=== PATIENT | male | born 1965 | race Hispanic/Latino ===

== ENCOUNTER 2024-09-01 16:58 | Inpatient (IN) | payer OTHER ==
[~2024-09-01] VITALS: Ht 167.6 cm; Wt 104.3 kg
[2024-09-01 17:50] LABS: BASOPHILS % 0.2 % (0.0-1.0); EOSINOPHILS % 0.2 % (0.0-6.0); HEMATOCRIT 36.3 % (38.2-49.6); HEMOGLOBIN 12.2 g/dL (14.0-18.0); LYMPHOCYTES # (AUTO) 0.7 (1.0-3.2); LYMPHOCYTES % 11.4 % (18.0-39.1); MEAN CORPUSCULAR HEMOGLOBIN 28.8 pg (28-32); MEAN CORPUSCULAR HGB CONC 33.6 g/dL (31-35); MEAN CORPUSCULAR VOLUME 85.6 fL (81-99); MONOCYTES # (AUTO) 0.4 (0.2-0.8); MONOCYTES % 5.5 % (4.4-11.3); NEUTROPHILS # (AUTO) 5.2 (2.1-6.9); NEUTROPHILS % 81.8 % (38.7-80.0); PLATELET COUNT 152 x10e3/uL (140-360); RED BLOOD COUNT 4.24 x10e6/uL (4.3-5.7); RED CELL DISTRIBUTION WIDTH 12.8 % (11.7-14.4); WHITE BLOOD COUNT 6.34 x10e3/uL (4.8-10.8)
[2024-09-01 17:53] LABS: BILIRUBIN,URINE SMALL (NEGATIVE); CLARITY,URINE SL CLOUDY (CLEAR); COLOR,URINE AMBER (YELLOW); GLUCOSE, URINE NEGATIVE (NEGATIVE); KETONES,URINE NEGATIVE (NEGATIVE); LEUKOCYTE ESTERASE ,URINE NEGATIVE (NEGATIVE); NITRITE,URINE NEGATIVE (NEGATIVE); PH,URINE 6 (5 - 7); PROTEIN,URINE DIPSTICK 2+ (NEGATIVE); URINE UROBILINOGEN 1 mg/dL (0.2 - 1)
[2024-09-01] MEDS: IBUPROFEN 600 MG TAB PO STA (17:57)
[2024-09-01] MEDS: SODIUM CHLORIDE 0.9% 1000ML 1,000 ML IV STA ×2 (17:57)
[2024-09-01] MEDS: ONDANSETRON HCL INJ 2MG/ML 2ML 2 MG/ML VIAL IV STA (17:57)
[2024-09-01] MEDS: ACETAMINOPHEN 325 MG TAB PO ONE (17:58)
[2024-09-01 18:00] LABS: INR 1.22; PROTHROMBIN TIME 16.1 seconds (11.9-14.5)
[2024-09-01 18:01] LABS: PARTIAL THROMBOPLASTIN TIME 41.3 seconds (23.8-35.5)
[2024-09-01 18:03] LABS: AMORPHOUS SEDIMENT,URINE MODERATE (FEW); BACTERIA,URINE MODERATE /HPF; RBC,URINE 0-5 /HPF (0-5); WBC,URINE (MAN) 0-5 /HPF (0-5)
[2024-09-01 18:08] LABS: ALBUMIN 3.1 g/dL (3.5-5.0); ANION GAP 18.3 mmol/L (8-16); BILIRUBIN,TOTAL 0.7 mg/dL (0.2-1.2); CALCIUM 8.2 mg/dL (8.4-10.2); CORONAVIRUS COVID-19 AG NEGATIVE (NEGATIVE); CREATININE, SERUM 1.67 mg/dL (0.72-1.25); INFLUENZA A AG NEGATIVE (NEGATIVE); INFLUENZA B AG NEGATIVE (NEGATIVE); MAGNESIUM 1.9 MG/DL (1.3-2.1); STREPTOCOCCUS GRP A ANTIGEN NEGATIVE (NEGATIVE); TOTAL PROTEIN 6.3 g/dL (6.5-8.1)
[2024-09-01 18:09] LABS: POTASSIUM 3.3 mmol/L (3.5-5.1)
[2024-09-01 18:14] LABS: TROPONIN I 0.038 ng/mL (0-0.300)
[2024-09-01 18:15] LABS: B-TYPE NATRIURETIC PEPTIDE2 80.7 pg/mL (0-100)
[2024-09-01] MEDS ORDERED: IOPAMIDOL 370 MG/ML 100 ML INFUS..BTL INJ ONE (18:33)
[2024-09-01] MEDS ORDERED: Morphine 4mg INJECTION 4 MG/ML INJ IV PRN (18:45)
[2024-09-01] MEDS ORDERED: ONDANSETRON HCL INJ 2MG/ML 2ML 2 MG/ML VIAL IV PRN (18:45)
[2024-09-01 19:45] VITALS: TEMP 99
[2024-09-01 19:50] VITALS: PULSE 88; RESP 18; O2SAT 99
[2024-09-01] MEDS: SODIUM CHLORIDE 0.9% 1000ML 1,000 ML IV SCH (20:00)
[2024-09-01 22:00] VITALS: BP 108/65; PULSE 92; RESP 18; O2SAT 99
[2024-09-01 22:15] VITALS: PULSE 88; RESP 16
[2024-09-02] VITALS (10 sets, daily range): BP systolic 109–123; BP diastolic 64–83; PULSE 73–126; RESP 18–20; TEMP 97.9–101.9; O2SAT 94–100
[2024-09-02] MEDS ORDERED: ATORVASTATIN CA20 MG PO (02:36)
[2024-09-02 06:09] LABS: BASOPHILS % 0.2 % (0.0-1.0); EOSINOPHILS % 0.2 % (0.0-6.0); HEMATOCRIT 35.1 % (38.2-49.6); HEMOGLOBIN 11.6 g/dL (14.0-18.0); LYMPHOCYTES # (AUTO) 0.5 (1.0-3.2); MEAN CORPUSCULAR HEMOGLOBIN 29.1 pg (28-32); MONOCYTES # (AUTO) 0.3 (0.2-0.8); MONOCYTES % 5.8 % (4.4-11.3); NEUTROPHILS # (AUTO) 3.9 (2.1-6.9); NEUTROPHILS % 82.9 % (38.7-80.0); PLATELET COUNT 114 x10e3/uL (140-360); RED BLOOD COUNT 3.99 x10e6/uL (4.3-5.7); RED CELL DISTRIBUTION WIDTH 13.1 % (11.7-14.4); WHITE BLOOD COUNT 4.69 x10e3/uL (4.8-10.8)
[2024-09-02 06:30] LABS: ALBUMIN 2.5 g/dL (3.5-5.0); ANION GAP 14.4 mmol/L (8-16); BILIRUBIN,TOTAL 0.6 mg/dL (0.2-1.2); CALCIUM 7.4 mg/dL (8.4-10.2); CREATININE, SERUM 1.53 mg/dL (0.72-1.25); TOTAL PROTEIN 5.1 g/dL (6.5-8.1)
[2024-09-02 06:31] LABS: POTASSIUM 3.4 mmol/L (3.5-5.1)
[2024-09-02 06:37] LABS: TROPONIN I 0.036 ng/mL (0-0.300)
[2024-09-02] MEDS: ACETAMINOPHEN 325 MG TAB PO PRN (09:34)
[2024-09-02] MEDS ORDERED: CLONIDINE HCL 0.1 MG TAB PO PRN (11:30)
[2024-09-02] MEDS ORDERED: ACETAMINOPHEN 325 MG TAB PO PRN (11:30)
[2024-09-02] MEDS: LORATADINE/PSEUDOEPHEDRINE 24 HR SR TAB PO SCH (14:28)
[2024-09-02] MEDS: DOCUSATE SODIUM 100 MG CAP PO SCH (14:28)
[2024-09-02 16:40] LABS: TROPONIN I 0.029 ng/mL (0-0.300)
[2024-09-02 16:46] LABS: HIV 1&2 AB SCREEN NON-REACTIVE (NONREACTIVE); HIV- 1 P24 AG SCREEN NON-REACTIVE (NONREACTIVE)
[2024-09-02] MEDS: POTASSIUM BICARBONATE/CIT AC 20 MEQ TABLET.EFF PO ONE (21:00)
[2024-09-02] MEDS: IBUPROFEN 600 MG TAB PO PRN (21:00)
[2024-09-02] MEDS: ATORVASTATIN 20 MG TAB PO SCH (21:00)
[2024-09-03] VITALS (7 sets, daily range): BP systolic 107–156; BP diastolic 72–92; PULSE 93–132; RESP 18–20; TEMP 97.4–102.3; O2SAT 97–100
[2024-09-03 05:52] LABS: BASOPHILS % 0.3 % (0.0-1.0); HEMOGLOBIN 10.1 g/dL (14.0-18.0); LYMPHOCYTES # (AUTO) 0.6 (1.0-3.2); LYMPHOCYTES % 14.9 % (18.0-39.1); MEAN CORPUSCULAR HEMOGLOBIN 28.8 pg (28-32); MEAN CORPUSCULAR HGB CONC 32.6 g/dL (31-35); MEAN CORPUSCULAR VOLUME 88.3 fL (81-99); MONOCYTES # (AUTO) 0.3 (0.2-0.8); MONOCYTES % 7.1 % (4.4-11.3); NEUTROPHILS % 75.4 % (38.7-80.0); PLATELET COUNT 148 x10e3/uL (140-360); RED BLOOD COUNT 3.51 x10e6/uL (4.3-5.7); RED CELL DISTRIBUTION WIDTH 13.5 % (11.7-14.4); WHITE BLOOD COUNT 3.96 x10e3/uL (4.8-10.8)
[2024-09-03 06:28] LABS: ALBUMIN 2.4 g/dL (3.5-5.0); ANION GAP 12.6 mmol/L (8-16); BILIRUBIN,TOTAL 0.5 mg/dL (0.2-1.2); CALCIUM 7.4 mg/dL (8.4-10.2); CREATININE, SERUM 1.33 mg/dL (0.72-1.25); POTASSIUM 3.6 mmol/L (3.5-5.1); TOTAL PROTEIN 4.8 g/dL (6.5-8.1)
[2024-09-03 10:45] LABS: BAND NEUTROPHILS % (MANUAL) 2 %; EOSINOPHILS % (MANUAL) 1 % (0-7); LYMPHOCYTES % (MANUAL) 15 % (19-48); MONOCYTES % (MANUAL) 4 % (3.4-9.0); NEUTROPHILS % (MANUAL) 78 % (40-74); PLATELET ESTIMATE ADEQUATE; PLATELET MORPHOLOGY COMMENT NORMAL
[2024-09-03] MEDS: METOPROLOL SUCCINATE 25 MG TAB XL PO SCH (13:15)
[2024-09-03] MEDS: SODIUM CHLORIDE 1 GM TAB PO ONE (15:04)
[2024-09-04] VITALS: BP 113/72; PULSE 100; RESP 20; TEMP 97.9; O2SAT 98
[2024-09-04 04:00] VITALS: BP 127/77; PULSE 106; RESP 20; TEMP 99.5; O2SAT 100
[2024-09-04 05:12] LABS: BASOPHILS % 0.4 % (0.0-1.0); EOSINOPHILS % 0.6 % (0.0-6.0); HEMATOCRIT 32.5 % (38.2-49.6); HEMOGLOBIN 10.6 g/dL (14.0-18.0); LYMPHOCYTES % 19.6 % (18.0-39.1); MEAN CORPUSCULAR HEMOGLOBIN 28.7 pg (28-32); MEAN CORPUSCULAR HGB CONC 32.6 g/dL (31-35); MEAN CORPUSCULAR VOLUME 88.1 fL (81-99); MONOCYTES # (AUTO) 0.5 (0.2-0.8); NEUTROPHILS # (AUTO) 3.5 (2.1-6.9); NEUTROPHILS % 69.2 % (38.7-80.0); PLATELET COUNT 172 x10e3/uL (140-360); RED BLOOD COUNT 3.69 x10e6/uL (4.3-5.7); RED CELL DISTRIBUTION WIDTH 13.8 % (11.7-14.4)
[2024-09-04 05:52] LABS: ANION GAP 13.9 mmol/L (8-16); CALCIUM 7.8 mg/dL (8.4-10.2); CREATININE, SERUM 1.03 mg/dL (0.72-1.25); POTASSIUM 3.9 mmol/L (3.5-5.1)
[2024-09-04 06:54] LABS: ALBUMIN 2.5 g/dL (3.5-5.0); BILIRUBIN,DIRECT 0.3 mg/dL (0.0-0.5); BILIRUBIN,TOTAL 0.5 mg/dL (0.2-1.2); TOTAL PROTEIN 5.3 g/dL (6.5-8.1)
[2024-09-04 07:04] LABS: THYROID STIMULATING HORMONE 1.491 uIU/mL (0.350-4.940)
[2024-09-04 07:57] VITALS: BP 144/75; PULSE 106; RESP 17; TEMP 98.9; O2SAT 100
[2024-09-04 08:00] VITALS: BP 144/75; PULSE 106; RESP 17; TEMP 98.9; O2SAT 100
[2024-09-04 11:49] VITALS: BP 120/80; PULSE 96; RESP 21; TEMP 98.1; O2SAT 99
[2024-09-04] MEDS ORDERED: TOPROL XL25 MG PO (13:08)
[2024-09-04 15:43] VITALS: BP 138/77; PULSE 102; RESP 16; TEMP 97.5; O2SAT 100
[2024-09-11 08:22] LABS: TOXOPLASMA IGG ANTIBODY 4.1
[2024-09-11 08:23] LABS: TOXOPLASMA IGM ANTIBODY <3.0
== END 2024-09-04 17:53 | disposition home or self-care (01) | DRG 866 ==
LOC: ER 17:19 → ERHOLD 18:39 → MED/SURG2 22:54
PROVIDERS: ADMIT Internal Medicine; ATTEND Internal Medicine
DX: B34.9 Viral infection, unspecified (principal); D61.818 Other pancytopenia; E87.1 Hypo-osmolality and hyponatremia; M62.82 Rhabdomyolysis; N17.9 Acute kidney failure, unspecified; E78.00 Pure hypercholesterolemia, unspecified; R00.0 Tachycardia, unspecified; E86.0 Dehydration; R53.81 Other malaise; N18.9 Chronic kidney disease, unspecified; R74.8 Abnormal levels of other serum enzymes; Z11.52 Encounter for screening for COVID-19
CPT/HCPCS: 36415; 71045; 71260; 80048; 80053; 80076; 81001; 82550; 83518; 83605; 83735; 83880; 84443; 84484; 85025; 85379; 85610; 85730; 86777; 86778; 87040; 87070; 87086; 87390; 93005; 93306; 93970; 94799; 99284; G0433; G0435; J0696; J2405; J7030; Q9967